=== PATIENT | female | born 1990 | race American Indian/Alaskan Native ===

== ENCOUNTER 2020-09-29 19:13 | Emergency (ER) | payer MEDICAID ==
--- NOTE | 2020-09-29 19:28 | Event Note ---
ED Screening Note Date of service: 09/29/20 Time: 19:27 ED Screening Note: Patient complains of abdominal pain, low back pain, nausea, and vaginal pain x3 days She states history of endometriosis and that this feels like a flareup Admits to urinary frequency, denies vaginal bleeding This initial assessment/diagnostic orders/clinical plan/treatment(s) is/are subject to change based on patients health status, clinical progression and re- assessment by fellow clinical providers in the ED. Further treatment and workup at subsequent clinical providers discretion. Patient/guardian urged not to elope from the ED as their condition may be serious if not clinically assessed and managed. Initial orders include: Labs
[2020-09-29] MEDS ORDERED: SODIUM CHLORIDE 0.9% 1000 ML 1,000 ML IV ONE (19:41)
[2020-09-29] MEDS ORDERED: MORPHINE 4 MG/1 ML INJ IV ONE (19:41)
[2020-09-29] MEDS ORDERED: ONDANSETRON 4 MG/2 ML INJ IV ONE (19:41)
[2020-09-29 19:59] LABS: Basophils # (Auto) 0.1 K/mm3 (0.0-0.1); Basophils % (Auto) 1.1 % (0.0-1.8); Eosinophils # (Auto) 0.4 K/mm3 (0.0-0.4); Eosinophils % (Auto) 4.8 % (0.0-4.3); Hematocrit 37.6 % (30.3-42.9); Hemoglobin 13.1 gm/dl (10.1-14.3); Lymphocytes # (Auto) 2.6 K/mm3 (1.2-5.4); Lymphocytes % (Auto) 29.3 % (13.4-35.0); Mean Corpuscular HGB Conc 35 % (30-34); Mean Corpuscular Volume 94 fl (79-97); Monocytes # (Auto) 0.8 K/mm3 (0.0-0.8); Platelet Count 210 K/mm3 (140-440); Red Cell Distribution Width 13.4 % (13.2-15.2)
[2020-09-29 20:18] LABS: Alanine Aminotransferase 18 units/L (7-56); Albumin 4.1 g/dL (3.9-5); BUN/Creatinine Ratio 9; Blood Urea Nitrogen 7 mg/dL (7-17); Calcium 8.9 mg/dL (8.4-10.2); Hemolysis Index 11
[2020-09-29 20:43] VITALS: BP 116/76
--- NOTE | 2020-09-29 20:47 | Emergency Department Report ---
ED Abdominal Pain HPI - General Chief Complaint: Abdominal Pain Stated Complaint: ABD PAINS Time Seen by Provider: 09/29/20 19:26 Source: patient Mode of arrival: Ambulatory Limitations: No Limitations - History of Present Illness Initial Comments: Patient 30-year-old -Irish female with a history of endometriosis who presents with bilateral lower abdominal pain 5/10 x2 days. Patient states intermittent nausea no vomiting. States pelvic pressure no vaginal bleeding. Patient is status post partial hysterectomy. There is associated back pain that radiates to suprapubic. Patient denies dysuria, frequency, hematuria. There has been no fever. Patient states symptoms are exacerbated by movement and palpation. Symptoms are relieved by nothing tried. Current treatment regimen is Percocet as needed. Patient states out of medication. MD Complaint: abdominal pain Severity scale (0 -10): 3 - Related Data Previous Rx's Medication Instructions Recorded Last Taken Type Acetaminophen/Codeine [Tylenol 1 tab PO Q6H PRN #12 tab 09/29/20 Unknown Rx /Codeine # 3 tab] Doxycycline Hyclate [Doxycycline 100 mg PO BID 7 Days #14 tab 09/29/20 Unknown Rx Hyclate TAB] metroNIDAZOLE [Flagyl] 500 mg PO Q12HR 7 Days #14 tab 09/29/20 Unknown Rx Allergies Allergy/AdvReac Type Severity Reaction Status Date / Time amoxicillin Allergy Hives Verified 09/29/20 19:24 tramadol Allergy Shortness Verified 09/29/20 19:25 of Breath ED Review of Systems ROS: Stated complaint: ABD PAINS Other details as noted in HPI Constitutional: denies: chills, fever Eyes: denies: eye pain, eye discharge, vision change ENT: denies: ear pain, throat pain Respiratory: denies: cough, shortness of breath, wheezing Cardiovascular: denies: chest pain, palpitations Endocrine: no symptoms reported Gastrointestinal: abdominal pain, nausea. denies: vomiting, diarrhea, constipation Genitourinary: denies: urgency, dysuria, frequency, hematuria, discharge Musculoskeletal: back pain. denies: joint swelling, arthralgia Skin: denies: rash, lesions Neurological: denies: headache, weakness, paresthesias Psychiatric: denies: anxiety, depression Hematological/Lymphatic: denies: easy bleeding, easy bruising ED Past Medical Hx - Past Medical History Previous Medical History?: Yes Hx Asthma: Yes Additional medical history: Endometriosis - Surgical History Past Surgical History?: Yes Additional Surgical History: Partial Hysterectomy - Social History Smoking Status: Current Some Day Smoker Substance Use Type: None - Medications Home Medications: Home Medications Medication Instructions Recorded Confirmed Last Taken Type Acetaminophen/Codeine [Tylenol 1 tab PO Q6H PRN #12 tab 09/29/20 Unknown Rx /Codeine # 3 tab] Doxycycline Hyclate [Doxycycline 100 mg PO BID 7 Days #14 tab 09/29/20 Unknown Rx Hyclate TAB] metroNIDAZOLE [Flagyl] 500 mg PO Q12HR 7 Days #14 tab 09/29/20 Unknown Rx ED Physical Exam - General Limitations: No Limitations General appearance: alert, in no apparent distress - Head Head exam: Present: atraumatic, normocephalic - Eye Eye exam: Present: normal appearance - ENT ENT exam: Present: mucous membranes moist - Neck Neck exam: Present: normal inspection, full ROM. Absent: tenderness - Respiratory Respiratory exam: Present: normal lung sounds bilaterally. Absent: respiratory distress, wheezes, stridor, chest wall tenderness - Cardiovascular Cardiovascular Exam: Present: regular rate, normal rhythm, normal heart sounds. Absent: systolic murmur, diastolic murmur, rubs, gallop - GI/Abdominal GI/Abdominal exam: Present: soft, tenderness (bilat lower superpubic ), normal bowel sounds. Absent: distended, guarding, rebound, rigid, bruit, hernia - Rectal Rectal exam: Present: deferred - External exam: Present: normal external exam Speculum exam: Present: erythema, vaginal discharge (white thick malodorous ), cervical discharge (clear). Absent: vaginal bleeding, foreign body, tissue, laceration Bi-manual exam: Present: cervical motion tendernes - Extremities Exam Extremities exam: Present: normal inspection, full ROM, normal capillary refill. Absent: tenderness - Back Exam Back exam: Present: normal inspection, full ROM. Absent: tenderness, CVA tenderness (R), CVA tenderness (L) - Neurological Exam Neurological exam: Present: alert, oriented X3, CN II-XII intact, normal gait - Psychiatric Psychiatric exam: Present: normal affect, normal mood - Skin Skin exam: Present: warm, dry, intact, normal color. Absent: rash ED Course Vital Signs 09/29/20 19:17 Temperature 98.1 F Pulse Rate 82 Respiratory 16 Rate Blood Pressure 116/76 O2 Sat by Pulse 97 Oximetry ED Medical Decision Making - Lab Data Result diagrams: 09/29/20 19:47 09/29/20 19:47 Labs 09/29/20 09/29/20 09/29/20 19:47 19:47 19:47 WBC 8.9 RBC 4.00 Hgb 13.1 Hct 37.6 MCV 94 MCH 33 H MCHC 35 H RDW 13.4 Plt Count 210 Lymph % (Auto) 29.3 [place] % (Auto) 9.0 H Eos % (Auto) 4.8 H Baso % (Auto) 1.1 Lymph # (Auto) 2.6 [place] # (Auto) 0.8 Eos # (Auto) 0.4 Baso # (Auto) 0.1 Seg Neutrophils % 55.8 Seg Neutrophils # 5.0 Sodium 139 Potassium 3.5 L Chloride 103.6 Carbon Dioxide 26 Anion Gap 13 BUN 7 Creatinine 0.8 Estimated GFR > 60 BUN/Creatinine Ratio 9 Glucose 93 Calcium 8.9 Total Bilirubin 0.70 AST 18 ALT 18 Alkaline Phosphatase 50 Total Protein 6.6 Albumin 4.1 Albumin/Globulin Ratio 1.6 HCG, Qual Negative Urine Color Urine Turbidity Urine pH Ur Specific [place] Urine Protein Urine Glucose (UA) Urine Ketones Urine Blood Urine Nitrite Urine Bilirubin Urine Urobilinogen Ur Leukocyte Esterase Urine WBC (Auto) Urine RBC (Auto) U Epithel Cells (Auto) Urine Bacteria (Auto) Urine Mucus 09/29/20 21:10 WBC RBC Hgb Hct MCV MCH MCHC RDW Plt Count Lymph % (Auto) [place] % (Auto) Eos % (Auto) Baso % (Auto) Lymph # (Auto) [place] # (Auto) Eos # (Auto) Baso # (Auto) Seg Neutrophils % Seg Neutrophils # Sodium Potassium Chloride Carbon Dioxide Anion Gap BUN Creatinine Estimated GFR BUN/Creatinine Ratio Glucose Calcium Total Bilirubin AST ALT Alkaline Phosphatase Total Protein Albumin Albumin/Globulin Ratio HCG, Qual Urine Color Yellow Urine Turbidity Clear Urine pH 6.0 Ur Specific [place] 1.020 Urine Protein <15 mg/dl Urine Glucose (UA) Neg Urine Ketones Tr Urine Blood Neg Urine Nitrite Neg Urine Bilirubin Neg Urine Urobilinogen < 2.0 Ur Leukocyte Esterase Neg Urine WBC (Auto) < 1.0 Urine RBC (Auto) 2.0 U Epithel Cells (Auto) 6.0 Urine Bacteria (Auto) 1+ Urine Mucus Few - Radiology Data Radiology results: report reviewed, image reviewed Findings Reporting MD: Robin Sheets Dictation Time: September 29, 2020 20:37 Air Pollution Compliance Inspector: Not available Wicker Worker Date: ULTRASOUND PELVIS INDICATION / CLINICAL INFORMATION: Ovarian Cyst. TECHNIQUE: Transabdominal. Duplex Color Doppler used: Yes. COMPARISON: None available FINDINGS: UTERUS: Uterus is not definitively seen and possibly surgically absent. RIGHT ADNEXA: Not visualized and possibly surgically absent. LEFT ADNEXA: No significant ovarian cyst or mass. Normal color Doppler blood flow. URINARY BLADDER: No significant abnormality. FREE FLUID: Minimal amount of free fluid. ADDITIONAL FINDINGS: None. IMPRESSION: 1. Uterus and right ovary are likely surgically absent. No si gnificant sonographic abnormality of the left ovary. Signer Name: Robin Sheets MD Signed: 09/29/2020 8:37 PM Workstation Name: [id number] - Medical Decision Making vaginal exam , mod erythema, white thick discharge , malodorous, mod CMT, no bleeding , no lesions, wet prep, GC/Chl cultures pending , pt will follow up with Systems Mgr as scheduled, health department tomorrow for HIV and HSV Screening. Critical care attestation.: If time is entered above; I have spent that time in minutes in the direct care of this critically ill patient, excluding procedure time. ED Disposition Clinical Impression: Hx of endometriosis Vaginitis Qualifiers: Chronicity: acute Qualified Code(s): N76.0 - Acute vaginitis Disposition: TO HOME OR SELFCARE Is pt being admited?: No Does the pt Need Aspirin: No Condition: Stable Instructions: Abdominal Pain (ED), Atrophic Vaginitis, Endometriosis Additional Instructions: Do not drink alcohol with flagyl , follow up with your ELECTRIC WHEELCHAIR REPAIRER in 1-2 days, Prescriptions: Doxycycline Hyclate [Doxycycline Hyclate TAB] 100 mg PO BID 7 Days #14 tab metroNIDAZOLE [Flagyl] 500 mg PO Q12HR 7 Days #14 tab Acetaminophen/Codeine [Tylenol /Codeine # 3 tab] 1 tab PO Q6H PRN #12 tab PRN Reason: pain Referrals: SAFIA YANEZ MD [Staff Physician] - 3-5 Days [facility] [Outside] - 3-5 Days Forms: Work/School Release Form(ED) Time of Disposition: 23:04
[2020-09-29] MEDS ORDERED: HYDROcodone/ACETAMINOPHEN 5-325 MG TAB PO ONE (21:13)
[2020-09-29 21:24] LABS: Bacteria,Urine 1+ /HPF (Negative); Bilirubin,Urine NEG (Negative); Blood,Urine NEG (Negative); Color,Urine Yellow (Yellow); Mucus,Urine FEW /HPF; Protein,Urine <15 mg/dL mg/dL (Negative); Urobilinogen,Urine < 2.0 mg/dL (<2.0); WBC,Urine < 1.0 /HPF (0.0-6.0)
--- NOTE | 2020-09-29 21:41 | Ultrasound Report ---
ULTRASOUND PELVIS INDICATION / CLINICAL INFORMATION: Ovarian Cyst. TECHNIQUE: Transabdominal. Duplex Color Doppler used: Yes. COMPARISON: None available FINDINGS: UTERUS: Uterus is not definitively seen and possibly surgically absent. RIGHT ADNEXA: Not visualized and possibly surgically absent. LEFT ADNEXA: No significant ovarian cyst or mass. Normal color Doppler blood flow. URINARY BLADDER: No significant abnormality. FREE FLUID: Minimal amount of free fluid. ADDITIONAL FINDINGS: None. IMPRESSION: 1. Uterus and right ovary are likely surgically absent. No significant sonographic abnormality of the left ovary. Signer Name: Robin Sheets MD Signed: 09/29/2020 9:37 PM Workstation Name: [id number]
[2020-09-29] MEDS ORDERED: LIDOCAINE-MPF (1%) 10 MG/1 ML VIAL 5 ML INFILTRATI ONE (22:36)
[2020-09-29] MEDS ORDERED: AZITHROMYCIN 250 MG TAB PO ONE (22:36)
== END 2020-09-29 23:45 | disposition home or self-care (01) ==
LOC: ED 19:13
DX: N76.0 Acute vaginitis (principal); N80.8 Other endometriosis; J45.909 Unspecified asthma, uncomplicated; F17.200 Nicotine dependence, unspecified, uncomplicated; Z90.710 Acquired absence of both cervix and uterus; Z88.6 Allergy status to analgesic agent; Z88.0 Allergy status to penicillin
CPT/HCPCS: 36415; 76856; 80053; 81001; 84703; 85025; 87210; 87591; 96361; 96372; 96374; 96375; 99285; J0696; J2270; J2405; J7030

== ENCOUNTER 2020-11-26 09:51 | Emergency (ER) | payer MEDICAID ==
[2020-11-26] MEDS ORDERED: oxyCODONE /ACETAMINOPHEN 5-325MG TAB PO ONE (10:10)
[2020-11-26] MEDS ORDERED: KETOROLAC 30 MG/1 ML INJ IM ONE (10:10)
[2020-11-26 10:12] VITALS: BP 119/82
--- NOTE | 2020-11-26 10:16 | Event Note ---
ED Screening Note Date of service: 11/26/20 Time: 10:15 ED Screening Note: Patient complains of left lower abdominal pain starting around 5 AM this morning History of endometriosis and partial hysterectomy of the right ovary uterus States this does feel like her endometriosis Reports ibuprofen is not helping with the pain Patient does follow with a UTILIZATION REVIEWER currently This initial assessment/diagnostic orders/clinical plan/treatment(s) is/are subject to change based on patients health status, clinical progression and re- assessment by fellow clinical providers in the ED. Further treatment and workup at subsequent clinical providers discretion. Patient/guardian urged not to elope from the ED as their condition may be serious if not clinically assessed and managed. Initial orders include:
[2020-11-26 11:08] LABS: Hematocrit 42.8 % (30.3-42.9); Hemoglobin 14.3 gm/dl (10.1-14.3); Mean Corpuscular HGB Conc 33 % (30-34); Mean Corpuscular Volume 95 fl (79-97); Platelet Count 257 K/mm3 (140-440); Red Blood Count 4.52 M/mm3 (3.65-5.03); Red Cell Distribution Width 13.2 % (13.2-15.2)
[2020-11-26 11:30] LABS: Alanine Aminotransferase 16 units/L (7-56); Albumin 4.8 g/dL (3.9-5); Blood Urea Nitrogen 6 mg/dL (7-17); Calcium 9.4 mg/dL (8.4-10.2); Hemolysis Index 3
[2020-11-26 12:02] LABS: Total Cells Counted 100
[2020-11-26 12:03] LABS: Anisocytosis 1+; Ovalocytes 1+; Platelet Estimate Consistent w Auto; Poikilocytosis 1+
[2020-11-26 12:15] LABS: BUN/Creatinine Ratio 9
== END 2020-11-26 11:44 ==
LOC: ED 09:51
DX: R10.32 Left lower quadrant pain (principal); Z53.21 Procedure and treatment not carried out due to patient leaving prior to being seen by health care provider
CPT/HCPCS: 36415; 80053; 83690; 85007; 85025; J1885

== ENCOUNTER 2020-12-23 08:33 | Emergency (ER) | payer MEDICAID ==
[2020-12-23 08:46] VITALS: BP 103/69
[2020-12-23 09:50] LABS: Basophils # (Auto) 0.1 K/mm3 (0.0-0.1); Basophils % (Auto) 1.4 % (0.0-1.8); Eosinophils # (Auto) 0.4 K/mm3 (0.0-0.4); Eosinophils % (Auto) 8.4 % (0.0-4.3); Hematocrit 42.4 % (30.3-42.9); Hemoglobin 14.4 gm/dl (10.1-14.3); Lymphocytes % (Auto) 37.4 % (13.4-35.0); Mean Corpuscular HGB Conc 34 % (30-34); Mean Corpuscular Volume 94 fl (79-97); Monocytes # (Auto) 0.4 K/mm3 (0.0-0.8); Monocytes % (Auto) 8.2 % (0.0-7.3); Platelet Count 236 K/mm3 (140-440); Red Blood Count 4.51 M/mm3 (3.65-5.03); Red Cell Distribution Width 13.4 % (13.2-15.2)
[2020-12-23 10:10] LABS: Alanine Aminotransferase 11 units/L (7-56); Albumin 4.5 g/dL (3.9-5); Blood Urea Nitrogen 6 mg/dL (7-17); Calcium 8.8 mg/dL (8.4-10.2); Hemolysis Index 9
[2020-12-23 10:11] LABS: BUN/Creatinine Ratio 9
--- NOTE | 2020-12-23 10:11 | Emergency Department Report ---
ED General Adult HPI - General Chief complaint: Abdominal Pain Stated complaint: EMDOMETRIOSIS;CYST PAIN PUI?: No Time Seen by Provider: 12/23/20 08:49 Source: patient, RN notes reviewed, old records reviewed Mode of arrival: Stretcher Limitations: No Limitations - History of Present Illness Initial comments: The patient was evaluated in the emergency department for symptoms described in the history of present illness. He/she was evaluated in the context of the global COVID-19 pandemic, which necessitated consideration that the patient might be at risk for infection with the virus that causes COVID-19. Institutional protocols and algorithms that pertain to the evaluation of patients at risk for COVID-19 are in a state of rapid change based on information released by regulatory bodies including the CDC and federal and state organizations. These policies and algorithms were followed during the patient's care in the emergency department. Please note that these policies, procedures and recommendations changed on a rapid basis. During the entire history and physical examination, I am chaperoned by Bernie Gloria This is a 30-year-old female. She is not known to myself previously. She reports that she has a history of endometriosis, hysterectomy, and right-sided oophorectomy. She reports that she was following at [place] for her endometriosis, but reports that her [facility] doctor had a baby, and that she there fore does not have a covering [employer] physician. She states that her private [employer] physician did not have anyone covering in their stead during their maternity leave. The patient presents to the ER today with complaint of nontraumatic suprapubic and left lower quadrant abdominal pain. There is no fever. There is positive nausea. The patient states this feels similar to prior episodes of endom etriosis. The patient denies fever, loss of taste, loss of smell. There is no complaint of chest pain, upper abdominal pain, actual vomiting, or muscular pain. Her pain is throbbing, and increases with palpation. It decreases with rest and pain medications. In the past, patient has been treated with morphine, as well as oxycodone. -: Gradual, days(s) Location: abdomen Radiation: other (Suprapubic and left lower quadrant) Quality: burning, stabbing, aching Consistency: constant Improves with: medication, rest Worsens with: movement - Related Data Previous Rx's Medication Instructions Recorded Last Taken Type Doxycycline Hyclate [Doxycycline 100 mg PO BID 7 Days #14 tab 09/29/20 Unknown Rx Hyclate TAB] metroNIDAZOLE [Flagyl] 500 mg PO Q12HR 7 Days #14 tab 09/29/20 Unknown Rx Acetaminophen [Non-Aspirin Extra 500 mg PO Q6HR PRN #30 tablet 12/23/20 Unknown Rx Strength] Ibuprofen [Motrin] 400 mg PO Q8H PRN #30 tablet 12/23/20 Unknown Rx Ondansetron [Zofran Odt] 4 mg PO Q8HR PRN #20 tab.rapdis 12/23/20 Unknown Rx Allergies Allergy/AdvReac Type Severity Reaction Status Date / Time amoxicillin Allergy Hives Verified 12/23/20 08:43 tramadol Allergy Shortness Verified 12/23/20 08:43 of Breath ED Review of Systems ROS: Stated complaint: EMDOMETRIOSIS;CYST PAIN Other details as noted in HPI Constitutional: denies: fever Respiratory: denies: cough Cardiovascular: as per HPI Gastrointestinal: as per HPI, abdominal pain, nausea Genitourinary: as per HPI. denies: dysuria Skin: as per HPI Neurological: as per HPI Psychiatric: as per HPI Hematological/Lymphatic: as per HPI ED Past Medical Hx - Past Medical History Hx Asthma: Yes Additional medical history: Endometriosis - Surgical History Additional Surgical History: Partial Hysterectomy - Social History Smoking Status: Never Smoker Substance Use Type: None - Medications Home Medications: Home Medications Medication Instructions Recorded Confirmed Last Taken Type Doxycycline Hyclate [Doxycycline 100 mg PO BID 7 Days #14 tab 09/29/20 Unknown Rx Hyclate TAB] metroNIDAZOLE [Flagyl] 500 mg PO Q12HR 7 Days #14 tab 09/29/20 Unknown Rx Acetaminophen [Non-Aspirin Extra 500 mg PO Q6HR PRN #30 tablet 12/23/20 Unknown Rx Strength] Ibuprofen [Motrin] 400 mg PO Q8H PRN #30 tablet 12/23/20 Unknown Rx Ondansetron [Zofran Odt] 4 mg PO Q8HR PRN #20 tab.rapdis 12/23/20 Unknown Rx ED Physical Exam - General Limitations: No Limitations, Other (Chaperoned by Bernie Gloria) General appearance: alert, anxious - Head Head exam: Present: atraumatic, normocephalic - Eye Eye exam: Present: normal appearance, EOMI. Absent: nystagmus - ENT ENT exam: Present: normal exam, normal orophraynx, mucous membranes moist, normal external ear exam - Neck Neck exam: Present: normal inspection, full ROM. Absent: tenderness, meningismus - Respiratory Respiratory exam: Present: normal lung sounds bilaterally. Absent: respiratory distress, wheezes, rales, rhonchi, stridor, decreased breath sounds - Cardiovascular Cardiovascular Exam: Present: regular rate, normal rhythm, normal heart sounds. Absent: bradycardia, tachycardia, irregular rhythm, systolic murmur, diastolic murmur, rubs, gallop - GI/Abdominal GI/Abdominal exam: Present: soft, tenderness, other (There is minimal left lower quadrant tenderness to deep palpation with distracted examination). Absent: distended, guarding, rebound, rigid, pulsatile mass - Extremities Exam Extremities exam: Present: normal inspection, full ROM, other (2+ pulses noted in the bilateral upper and lower extremities. There is no palpable cord. negative Homans sign. Muscular compartments are soft. The pelvis is stable.). Absent: pedal edema, calf tenderness - Back Exam Back exam: Present: normal inspection, full ROM. Absent: tenderness, CVA tenderness (R), CVA tenderness (L), paraspinal tenderness, vertebral tenderness - Neurological Exam Neurological exam: Present: alert, other (There is no facial droop. The tongue is midline. The extraocular movements are intact bilaterally. Hearing is grossly intact. Shoulder shrug is intact. Patient alert, oriented, and sober, moving 4 extremities spontaneously.) - Psychiatric Psychiatric exam: Present: anxious - Skin Skin exam: Present: warm, dry, intact, normal color. Absent: rash ED Course Vital Signs 12/23/20 08:43 Temperature 97.9 F Pulse Rate 91 H Respiratory 18 Rate Blood Pressure 103/69 O2 Sat by Pulse 98 Oximetry - Reevaluation(s) Reevaluation #1: 12/23/20 10:10 [place] linux consultant aware elroy quan Summary Summary Total Prescriptions 3 Total Private Pay 0 Total Prescribers 3 Total Pharmacies 3 Opioids* (excluding buprenorphine) Current Qty 0.0 Current MME/day 0.0 30 Day Avg MME/day 0.0 Buprenorphine* Current Qty 0.0 Current mg/day 0.0 30 Day Avg mg/day 0.0 Prescriptions Filled ID Written Drug QTY Days Prescriber Rx # Pharmacy * Refills Daily Dose Pymt Type [employer]ILDC[employer] DIRECTOR 09/30/2020 1 09/29/2020 ACETAMINOPHEN-COD #[address] [id number] RICARDO ([id number]) 0 18.0 [place] 05/02/2020 3 05/02/2020 HYDROCODONE-ACETAMIN 5-325 MG 20.0 5 [place] FEL [id number] [facility] ([id number]) 0 20.0 [place] 03/14/2020 2 03/14/2020 HYDROCODONE-ACETAMIN 5-325 MG 14.0 3 DAYA [id number] [facility] ([id number]) 0 23.33 [place] *Pharmacy is created using a combination of pharmacy name and the last four digits of the pharmacy license number. *Per CDC guidance, the MME conversion factors prescribed or provided as part of medication-assisted treatment for opioid use disorder should not be used to benchmark against dosage thresholds meant for opioids prescribed for pain. Buprenorphine products have no agreed upon morphine equivalency, and as partial opioid agonists, are not expected to be associated with overdose risk in the same dose-dependent manner as doses for full agonist opioids. MME = morphine milligram equivalents. mg = dose in milligrams. Prescribers Name Address [facility] Zip Phone ELISHA BRANDON, DMD [address] [address] TAWANA MANN, RODNEY [address] [facility] [address] DANIAL ELKINS [address] [facility] [address] [facility] Address [facility] Zip Phone [facility] [phone] [id number] [facility] [phone] [facility] [address] [facility] [phone] [facility] [id number] ED Medical Decision Making - Lab Data Result diagrams: 12/23/20 09:24 12/23/20 09:24 Vital Signs 12/23/20 08:43 Temperature 97.9 F Pulse Rate 91 H Respiratory 18 Rate Blood Pressure 103/69 O2 Sat by Pulse 98 Oximetry Lab Results 12/23/20 12/23/20 12/23/20 Range/Units 09:24 09:24 09:24 WBC 5.2 (4.5-11.0) K/mm3 RBC 4.51 (3.65-5.03) M/mm3 Hgb 14.4 H (10.1-14.3) gm/dl Hct 42.4 (30.3-42.9) % MCV 94 (79-97) fl MCH 32 (28-32) pg MCHC 34 (30-34) % RDW 13.4 (13.2-15.2) % Plt Count 236 (140-440) K/mm3 Lymph % (Auto) 37.4 H (13.4-35.0) % Coffey % (Auto) 8.2 H (0.0-7.3) % Eos % (Auto) 8.4 H (0.0-4.3) % Baso % (Auto) 1.4 (0.0-1.8) % Lymph # (Auto) 2.0 (1.2-5.4) K/mm3 Coffey # (Auto) 0.4 (0.0-0.8) K/mm3 Eos # (Auto) 0.4 (0.0-0.4) K/mm3 Baso # (Auto) 0.1 (0.0-0.1) K/mm3 Seg Neutrophils % 44.6 (40.0-70.0) % Seg Neutrophils # 2.3 (1.8-7.7) K/mm3 Sodium 136 L (137-145) mmol/L Potassium 3.7 (3.6-5.0) mmol/L Chloride 103.3 (98-107) mmol/L Carbon Dioxide 26 (22-30) mmol/L Anion Gap 10 mmol/L BUN 6 L (7-17) mg/dL Creatinine 0.7 (0.6-1.2) mg/dL Estimated GFR > 60 ml/min BUN/Creatinine Ratio 9 % Glucose 90 (65-100) mg/dL Calcium 8.8 (8.4-10.2) mg/dL Total Bilirubin 0.80 (0.1-1.2) mg/dL AST 15 (5-40) units/L ALT 11 (7-56) units/L Alkaline Phosphatase 61 (35-129) units/L Total Protein 7.3 (6.3-8.2) g/dL Albumin 4.5 (3.9-5) g/dL Albumin/Globulin Ratio 1.6 % Lipase 95 H (13-60) units/L HCG, Qual Negative (Negative) - Radiology Data Radiology results: report reviewed, image reviewed ULTRASOUND PELVIS INDICATION / CLINICAL INFORMATION: Ovarian Cyst. TECHNIQUE: Transabdominal. Duplex Color Doppler used: Yes. COMPARISON: None available FINDINGS: UTERUS: Uterus is not definitively seen and possibly surgically absent. RIGHT ADNEXA: Not visualized and possibly surgically absent. LEFT ADNEXA: No significant ovarian cyst or mass. Normal color Doppler blood flow. URINARY BLADDER: No significant abnormality. FREE FLUID: Minimal amount of free fluid. ADDITIONAL FINDINGS: None. IMPRESSION: 1. Uterus and right ovary are likely surgically absent. No significant sonographic abnormality of the left ovary. Signer Name: Robin Sheets MD Signed: 09/29/2020 8:37 PM Workstation Name: [id number] - Medical Decision Making Differential diagnosis, including but not limited to: Endometriosis pain, narcotic dependence, ovarian cyst Assessment and plan: 30-year-old female, who is afebrile, with reassuring vital signs, with known history of endometriosis, presenting with probable recurrent endometriosis flare. Uterus is surgically absent, patient had an ultrasound at this facility a few months ago, which did not demonstrate any evidence of ovarian cyst or torsion. Extensive discussion had with the patient regarding need to follow-up with outpatient [employer] and/or pain specialist. I professionally and politely informed the patient that we will be happy to treat her acute pain here in the emergency room, with Toradol and hydromorphone. However, I explained to the patient that because of the current opioid epidemic, and risks associated with chronic narcotic prescriptions, that I would not be able to prescribe outpatient narcotics to go home with, that she would need to follow-up with a [employer]ALLP[employer] INSPECTOR AND [employer]IPPER doctor, or a pain specialist. Her presentation today appears to be consistent with prior presentations. There is no epigastric or upper abdominal pain or tenderness, and no active vomiting. Elevated lipase nonspecific, however, do not see indication for advanced imaging at this time. Laboratory studies were ordered prior to my personal evaluation of this patient. She denies dysuria, therefore, did not see indication for urinalysis. During the entire encounter with this patient, I was chaperoned and accompanied by Ms. Bernie Gloria. Critical care attestation.: If time is entered above; I have spent that time in minutes in the direct care of this critically ill patient, excluding procedure time. ED Disposition Clinical Impression: History of endometriosis, Left lower quadrant abdominal pain Disposition: TO HOME OR SELFCARE Is pt being admited?: No Does the pt Need Aspirin: No Condition: Good Instructions: Endometriosis, Abdominal Pain (ED) Additional Instructions: Please follow-up with an [employer] INS[employer] AND [employer]IP[employer] physician, or pain specialist, within the next 5 to 7 days. Take the prescribed pain medication and nausea medications as needed and directed. Please return to the emergency room right away with new pain, worsened pain, mi gration of pain, projectile vomiting, change in mental status, confusion, inability to tolerate liquid feeds, new, worsened or different symptoms not present on the initial emergency room evaluation. For the patient's convenience, local [facility] [employer] [employer] physician have been listed. For the patient's convenience, some local pain specialist and pain management clinics have been listed in this discharge paperwork. As we discussed, patient is not being discharged with opioid medications, as opioid medications carry a high risk of dependence, addiction, and are associated with , disability, paralysis, loss of quality of life, when used incorrectly or inappropriately. [facility] Doctor in [place], [place] Address: [address] [facility] [address], [place] [address] Dr. Jason Omalley Pain management physician in [place] Address: [address] [place] [address] [facility] clinic in [place] Located in: [facility] Address: [address] [place] [address] [facility] Pain management physician in [place], [place] Address: [address] [place] [address] [address], [place] [address] Prescriptions: Ibuprofen [Motrin] 400 mg PO Q8H PRN #30 tablet PRN Reason: Pain , Severe (7-10) Acetaminophen [Non-Aspirin Extra Strength] 500 mg PO Q6HR PRN #30 tablet PRN Reason: Pain , Severe (7-10) Ondansetron [Zofran Odt] 4 mg PO Q8HR PRN #20 tab.rapdis PRN Reason: Nausea Referrals: [facility] [Provider Group] - 3-5 Days [facility] [Provider Group] - 3-5 Days [facility] [Provider Group] - 3-5 Days Forms: Work/School Release Form(ED)
[2020-12-23] MEDS ORDERED: HYDROmorphone 1 MG/1 ML INJ IM ONE (10:23)
[2020-12-23] MEDS ORDERED: KETOROLAC 30 MG/1 ML INJ IM ONE (10:23)
== END 2020-12-23 11:27 | disposition home or self-care (01) ==
LOC: ED 08:33
DX: N80.9 Endometriosis, unspecified (principal); R10.32 Left lower quadrant pain; J45.909 Unspecified asthma, uncomplicated; Z90.710 Acquired absence of both cervix and uterus; Z79.1 Long term (current) use of non-steroidal anti-inflammatories (NSAID); Z79.899 Other long term (current) drug therapy; Z88.1 Allergy status to other antibiotic agents; Z88.8 Allergy status to other drugs, medicaments and biological substances
CPT/HCPCS: 36415; 80053; 83690; 84703; 85025; 96372; 99283; J1170; J1885